=== PATIENT | male | born 1955 | race Caucasian/White ===

== ENCOUNTER 2017-08-01 09:45 | Inpatient (IN) | payer MEDICAID, SELFPAY ==
[2017-08-01 10:17] VITALS: BMI 34.6
[2017-08-01 10:25] VITALS: BMI 34.6
[2017-08-01 10:30] VITALS: PULSE 120
[2017-08-01] MEDS: Lactated Ringers 1,000 ML 125 ML IV ×2 (10:43→18:44)
[2017-08-01 10:48] VITALS: BP 124/84; PULSE 113; RESP 18; TEMP 37.7; O2SAT 92
[2017-08-01 10:51] LABS: Absolute Lymphocyte Count 1.88 X10^3/ul (0.83-4.51); Basophil# 0.04 X10^3/uL; Basophil% 0.2 % (0-1); Differential Indicated SCAN CRITERIA MET; Hematocrit 37.1 % (40-54); Hemoglobin 12.5 g/dl (13.0-16.5); Lymphocyte # 1.88 X10^3/ul (4.0); Lymphocyte % 8.4 % (19-41); Mean Corp Hgb Conc 33.7 g/gl (32-36); Mean Corpuscular Hgb 28.9 pg (27.0-32.0); Mean Corpuscular Volume 85.7 fL (80-94); Mean Platelet Vol. 10.7 fl (6.2-12.0); Monocyte# 1.52 X10^3/uL; Monocyte% 6.8 % (0-10); Neutrophil # 18.97 X10^3/uL (2.7-7.7); Neutrophil % 84.2 % (47-70); POSITIVE COUNT NO; POSITIVE DIFFERENTIAL YES; POSITIVE MORPHOLOGY NO; Platelet Count 260 K/mm3 (150-450); RBC Distribution Width CV 14.2 % (11.6-14.6); RBC Distribution Width SD 43.6 fl (35.1-43.9); Red Blood Count 4.33 M/mm3 (4.6-6.2); White Blood Count 22.5 K/mm3 (4.4-11.0)
[2017-08-01 11:03] LABS: ALB/GLOB Ratio 0.7 RATIO (0.9-2.4); AST(SGOT) 70 U/L (15-37); Alanine Aminotransfer ALT/SGPT 93 U/L (12-78); Alkaline Phosphatase 121 U/L (45-117); Anion Gap 10 (5-15); BUN 28 mg/dL (7-18); Calcium,Total 8.3 mg/dL (8.5-10.1); Chloride 104 mmol/L (98-107); Creatinine, Serum 1.47 mg/dL (0.70-1.30); EST Glomerular Filtration Rate 51 mL/min (>60); Est Glom Filt Rate - Afr Amer 62 mL/min (>60); Estimated Creatinine Clearance 46.42 ml/min; Globulin 4.4 g/dL (2.2-4.2); Glucose 109 mg/dL (70-110); Potassium 3.9 mmol/L (3.5-5.1); Protein, Total 7.4 g/dL (6.4-8.2); Sodium Level 139 mmol/L (136-145)
[2017-08-01] MEDS: 0.9% NaCl Peripheral Flush Adult/Peds IV ×3 (12:34→23:07)
[2017-08-01] MEDS: Piperacil/Tazobactam 3.375 GM/50 ML ML IV ×2 (12:34→21:48)
[2017-08-01] MEDS: Cyanocobalamin (B12) 1,000 MCG/ML Vial 1000 MCG SC (12:55)
--- NOTE | 2017-08-01 12:59 | PCM.HP.STD ---
Problem List (1) Diverticulitis Status: Acute (2) Pyelonephritis Status: Acute History of Present Illness Date of Admission: 08/01/17 The patient is a 61 year old M who had an incisional hernia repair on 07/16/2017. The patient was doing well and was seen by me in the office last week and his drain was removed. At that time he had no nausea vomiting or abdominal pain. He presented to the emergency room at [facility] this morning due to nausea and vomiting yesterday an left lower quadrant and left flank pain radiating to his back. He reports he started yesterday with no fevers or chills. He is not having any burning on urination is not having any diarrhea. Past Medical History Allergies DENEEN Inhibitors Allergy (Mild, Verified 07/26/17 13:07) Unknown atenolol Allergy (Mild, Verified 07/26/17 13:07) unknown Latex, Natural Rubber Allergy (Mild, Verified 08/01/17 10:11) Unknown skin breaks Home Medications: Ambulatory Orders Medication Instructions Recorded cyanocobalamin (vit B-12) 1,000 1,000 mcg SC QMONTH 07/08/17 mcg/mL injection solution losartan 100 mg tablet 100 mg PO DAILY 07/08/17 omeprazole 40 mg capsule,delayed 40 mg PO PRN PRN 07/08/17 release Red Yeast Rice 600 mg PO DAILY 07/12/17 oxycodone-acetaminophen 5 mg-325 1 tab PO Q4H PRN 14 Days #30 tab 07/21/17 mg tablet Amlodipine [Norvasc] 5 mg PO DAILY 08/01/17 Surgical History: cholecystectomy, colectomy - Laparoscopic colectomy in December 2016 at [facility], - - Ventral hernia repair with mesh on 07/16/2017 Smoking Status: Never smoker - *Family History Maternal Family History: Family History (Last Reviewed 08/01/17 @ 13:00 by Edson Zendejas MD) Mother Breast cancer Brother Colon cancer Father Diabetes Review of Systems Constitutional: Denies: Anorexia, Fever HEENT: Denies: Difficulty Swallowing Cardiovascular: Denies: Chest Pain Respiratory: Denies: Cough, Hemoptysis, Shortness of Breath Gastrointestinal: Reports: Abdominal Pain - Left lower quadrant abdominal pain radiating to the back, Nausea - He had nausea and vomiting yesterday which have resolved. Denies: Diarrhea Genitourinary: Denies: Dysuria, Hematuria Musculoskeletal: Denies: Joint Tenderness Skin: Denies: Dryness, Jaundice Psychiatric: Denies: Anxiety, Depression Hematologic/ Lymphatic: Denies: Anemia VTE Information - Inpt Only VTE Present on Admission: No VTE Mechan Device Prophylaxis: SCD's VTE Pharm Prophylaxis ordered?: No Patient Problems: Active and Suspected Problems (Last Reviewed 07/26/17 @ 13:06 by Hawa Pinon) Diverticulitis (Acute) Pyelonephritis (Acute) - Physical Exam General: Alert, Oriented x3, Cooperative, No apparent distress HEENT: Atraumatic, PERRLA, EOMI Oral: Moist Mucosa Neck: Supple, No JVD Lungs: Normal air movement Cardiovascular: Regular Rhythm, Tachycardic Abdomen: Soft, Non-Distended, Tender - Tender in the left lower quadrant with no guarding or rebound, - - Positive left CVA tenderness. Former incision is clean dry and intact with no erythema. His incisional area is soft and nontender. Extremities: No clubbing, No cyanosis Skin: No rashes Musculoskeletal: No Tenderness to Palpation of Joints or Extremities, No Muscle Wasting Neurological: Cranial nerves II-XII grossly intact Psych/Mental Status: Normal Affect, Appropriate Vital Signs Temp Pulse Resp BP Pulse Ox 99.8 F H 113 H 18 124/84 H 92 08/01/17 10:48 08/01/17 10:48 08/01/17 10:48 08/01/17 10:48 08/01/17 10:48 Oxygen Delivery Method Room Air Weight: 214 lb 8.156 oz Body Mass Index (BMI) 34.6 Intake and Output for Last 24 Hours 07/30/17 07/31/17 08/01/17 23:59 23:59 23:59 Intake Total 199 / 199 Output Total 110 / 110 Balance 89 / 89 Laboratory Tests Past 24 Hrs 08/01/17 08/01/17 10:30 10:30 WBC 22.5 H RBC 4.33 L Hgb 12.5 L Hct 37.1 L MCV 85.7 MCH 28.9 MCHC 33.7 RDW 14.2 RDW Differential 43.6 Plt Count 260 MPV 10.7 Immature Gran % (Auto) 0.400 Neut % (Auto) 84.2 H Lymph % (Auto) 8.4 L [place] % (Auto) 6.8 Eos % (Auto) 0.0 Baso % (Auto) 0.2 Absolute Neuts (auto) 19.0 H Absolute Lymphs (auto) 1.88 Total Counted Not Reportable Differential Comment Sodium 139 Potassium 3.9 Chloride 104 Carbon Dioxide 25.0 Anion Gap 10 BUN 28 H Creatinine 1.47 H Estim Creat Clear Calc 46.42 Est GFR (MDRD) Af Amer 62 Est GFR (MDRD) Non-Af 51 L BUN/Creatinine Ratio 19.0 Glucose 109 Calcium 8.3 L Total Bilirubin 1.50 H AST 70 H ALT 93 H Alkaline Phosphatase 121 H Total Protein 7.4 Albumin 3.0 L Globulin 4.4 H Albumin/Globulin Ratio 0.7 L Assessment/Plan Active and Suspected Problems (Last Reviewed 07/26/17 @ 13:06 by Hawa Pinon) Diverticulitis (Acute) Pyelonephritis (Acute) 61-year-old male with acute diverticulitis 1. The patient has leukocytosis and left lower quadrant pain. I reviewed his CAT scan done at the outside hospital. This shows thickening in the area of the colon at his anastomosis. There is still some diverticula in this area. This is likely diverticulitis. However there is stranding in his left perinephric region which was not present on his last CAT scan. He is also complaining of pain radiating to his back. I believe he also has pyelonephritis possibly from translocation of bacteria to his ureter from his colon. 2. I discussed his case with a urologist at [facility] who he will be seeing as an outpatient. He recommended percutaneous nephrostomy tube and to discharge him with this tube in place and he will see him as an outpatient. I will order this percutaneous nephrostomy tube and treat his diverticulitis with n.p.o. and IV fluids and antibiotics. 3. Antibiotics, n.p.o., IV fluids, SCDs. Temporarily hold Lovenox due to percutaneous nephrostomy tube tomorrow. Edson Zendejas MD Pager: [facility] [address] [place] [address] Office:
--- NOTE | 2017-08-01 13:04 | HP.PCM_ITS ---
Problem List (1) Diverticulitis Status: Acute (2) Pyelonephritis Status: Acute History of Present Illness Date of Admission: 08/01/17 The patient is a 61 year old M who had an incisional hernia repair on 2016. The patient was doing well and was seen by me in the office last week and his drain was removed. At that time he had no nausea vomiting or abdominal pain. He presented to the emergency room at [facility] this morning due to nausea and vomiting yesterday an left lower quadrant and left flank pain radiating to his back. He reports he started yesterday with no fevers or chills. He is not having any burning on urination is not having any diarrhea. Past Medical History Allergies DENEEN Inhibitors Allergy (Mild, Verified 07/26/17 13:07) Unknown atenolol Allergy (Mild, Verified 07/26/17 13:07) unknown Latex, Natural Rubber Allergy (Mild, Verified 08/01/17 10:11) Unknown skin breaks Home Medications: Ambulatory Orders Medication Instructions Recorded cyanocobalamin (vit B-12) 1,000 1,000 mcg SC QMONTH 07/08/17 mcg/mL injection solution losartan 100 mg tablet 100 mg PO DAILY 07/08/17 omeprazole 40 mg capsule,delayed 40 mg PO PRN PRN 07/08/17 release Red Yeast Rice 600 mg PO DAILY 07/12/17 oxycodone-acetaminophen 5 mg-325 1 tab PO Q4H PRN 14 Days #30 tab 07/21/17 mg tablet Amlodipine [Norvasc] 5 mg PO DAILY 08/01/17 Surgical History: cholecystectomy, colectomy - Laparoscopic colectomy in December 2016 at [facility], - - Ventral hernia repair with mesh on 07/16/2017 Smoking Status: Never smoker - *Family History Maternal Family History: Family History (Last Reviewed 08/01/17 @ 13:00 by Edson Zendejas MD) Mother Breast cancer Brother Colon cancer Father Diabetes Review of Systems Constitutional: Denies: Anorexia, Fever HEENT: Denies: Difficulty Swallowing Cardiovascular: Denies: Chest Pain Respiratory: Denies: Cough, Hemoptysis, Shortness of Breath Gastrointestinal: Reports: Abdominal Pain - Left lower quadrant abdominal pain radiating to the back, Nausea - He had nausea and vomiting yesterday which have resolved. Denies: Diarrhea Genitourinary: Denies: Dysuria, Hematuria Musculoskeletal: Denies: Joint Tenderness Skin: Denies: Dryness, Jaundice Psychiatric: Denies: Anxiety, Depression Hematologic/ Lymphatic: Denies: Anemia VTE Information - Inpt Only VTE Present on Admission: No VTE Mechan Device Prophylaxis: SCD's VTE Pharm Prophylaxis ordered?: No Patient Problems: Active and Suspected Problems (Last Reviewed 07/26/17 @ 13:06 by Hawa Pinon) Diverticulitis (Acute) Pyelonephritis (Acute) - Physical Exam General: Alert, Oriented x3, Cooperative, No apparent distress HEENT: Atraumatic, PERRLA, EOMI Oral: Moist Mucosa Neck: Supple, No JVD Lungs: Normal air movement Cardiovascular: Regular Rhythm, Tachycardic Abdomen: Soft, Non-Distended, Tender - Tender in the left lower quadrant with no guarding or rebound, - - Positive left CVA tenderness. Former incision is clean dry and intact with no erythema. His incisional area is soft and nontender. Extremities: No clubbing, No cyanosis Skin: No rashes Musculoskeletal: No Tenderness to Palpation of Joints or Extremities, No Muscle Wasting Neurological: Cranial nerves II-XII grossly intact Psych/Mental Status: Normal Affect, Appropriate Vital Signs Temp Pulse Resp BP Pulse Ox 99.8 F H 113 H 18 124/84 H 92 08/01/17 10:48 08/01/17 10:48 08/01/17 10:48 08/01/17 10:48 08/01/17 10:48 Oxygen Delivery Method Room Air Weight: 214 lb 8.156 oz Body Mass Index (BMI) 34.6 Intake and Output for Last 24 Hours 07/30/17 07/31/17 08/01/17 23:59 23:59 23:59 Intake Total 199 / 199 Output Total 110 / 110 Balance 89 / 89 Laboratory Tests Past 24 Hrs 08/01/17 08/01/17 10:30 10:30 WBC 22.5 H RBC 4.33 L Hgb 12.5 L Hct 37.1 L MCV 85.7 MCH 28.9 MCHC 33.7 RDW 14.2 RDW Differential 43.6 Plt Count 260 MPV 10.7 Immature Gran % (Auto) 0.400 Neut % (Auto) 84.2 H Lymph % (Auto) 8.4 L [place] % (Auto) 6.8 Eos % (Auto) 0.0 Baso % (Auto) 0.2 Absolute Neuts (auto) 19.0 H Absolute Lymphs (auto) 1.88 Total Counted Not Reportable Differential Comment Sodium 139 Potassium 3.9 Chloride 104 Carbon Dioxide 25.0 Anion Gap 10 BUN 28 H Creatinine 1.47 H Estim Creat Clear Calc 46.42 Est GFR (MDRD) Af Amer 62 Est GFR (MDRD) Non-Af 51 L BUN/Creatinine Ratio 19.0 Glucose 109 Calcium 8.3 L Total Bilirubin 1.50 H AST 70 H ALT 93 H Alkaline Phosphatase 121 H Total Protein 7.4 Albumin 3.0 L Globulin 4.4 H Albumin/Globulin Ratio 0.7 L Assessment/Plan Active and Suspected Problems (Last Reviewed 07/26/17 @ 13:06 by Hawa Pinon) Diverticulitis (Acute) Pyelonephritis (Acute) 61-year-old male with acute diverticulitis 1. The patient has leukocytosis and left lower quadrant pain. I reviewed his CAT scan done at the outside hospital. This shows thickening in the area of the colon at his anastomosis. There is still some diverticula in this area. This is likely diverticulitis. However there is stranding in his left perinephric region which was not present on his last CAT scan. He is also complaining of pain radiating to his back. I believe he also has pyelonephritis possibly from translocation of bacteria to his ureter from his colon. 2. I discussed his case with a urologist at [facility] who he will be seeing as an outpatient. He recommended percutaneous nephrostomy tube and to discharge him with this tube in place and he will see him as an outpatient. I will order this percutaneous nephrostomy tube and treat his diverticulitis with n.p.o. and IV fluids and antibiotics. 3. Antibiotics, n.p.o., IV fluids, SCDs. Temporarily hold Lovenox due to percutaneous nephrostomy tube tomorrow. Edson Zendejas MD Pager: [facility] [address] [place] [address] Office:
[2017-08-01 15:22] VITALS: BP 136/86; PULSE 104; RESP 18; TEMP 37; O2SAT 95
[2017-08-01 20:25] VITALS: BP 136/80; PULSE 102; RESP 20; TEMP 37.5; O2SAT 95
[2017-08-02] VITALS (9 sets, daily range): BP systolic 144–175; BP diastolic 79–99; PULSE 96–109; RESP 16–20; TEMP 37.1–38.4; O2SAT 93–96
[2017-08-02] MEDS: Lactated Ringers 1,000 ML 125 ML IV ×3 (03:00→19:51)
[2017-08-02] MEDS: Piperacil/Tazobactam 3.375 GM/50 ML ML IV ×3 (06:25→22:37)
[2017-08-02] MEDS: 0.9% NaCl Peripheral Flush Adult/Peds IV (06:25)
[2017-08-02 06:26] LABS: Absolute Lymphocyte Count 0.97 X10^3/ul (0.83-4.51); Basophil# 0.04 X10^3/uL; Basophil% 0.3 % (0-1); Eosinophil# 0.08 X10^3/uL; Eosinophils% 0.6 % (0-5); Hematocrit 34.6 % (40-54); Hemoglobin 11.3 g/dl (13.0-16.5); Lymphocyte # 0.97 X10^3/ul (4.0); Lymphocyte % 6.9 % (19-41); Mean Corp Hgb Conc 32.7 g/gl (32-36); Mean Corpuscular Hgb 28.3 pg (27.0-32.0); Mean Corpuscular Volume 86.7 fL (80-94); Mean Platelet Vol. 10.7 fl (6.2-12.0); Monocyte# 1.01 X10^3/uL; Monocyte% 7.2 % (0-10); Neutrophil # 11.95 X10^3/uL (2.7-7.7); Neutrophil % 84.8 % (47-70); Platelet Count 197 K/mm3 (150-450); RBC Distribution Width CV 14.1 % (11.6-14.6); RBC Distribution Width SD 45.1 fl (35.1-43.9); Red Blood Count 3.99 M/mm3 (4.6-6.2); White Blood Count 14.1 K/mm3 (4.4-11.0)
[2017-08-02 06:27] LABS: International Normalized Ratio 1.3; Prothrombin Time (Protime)PT. 15.8 SECONDS (11.7-14.9)
[2017-08-02 06:28] LABS: POSITIVE COUNT NO; POSITIVE DIFFERENTIAL NO; POSITIVE MORPHOLOGY NO
[2017-08-02 06:41] LABS: ALB/GLOB Ratio 0.6 RATIO (0.9-2.4); AST(SGOT) 30 U/L (15-37); Alanine Aminotransfer ALT/SGPT 61 U/L (12-78); Albumin, Serum 2.4 g/dL (3.4-5.0); Alkaline Phosphatase 118 U/L (45-117); Anion Gap 9 (5-15); BUN 20 mg/dL (7-18); BUN/Creat Ratio 16.1 RATIO (10-20); Calcium,Total 8.2 mg/dL (8.5-10.1); Chloride 105 mmol/L (98-107); Creatinine, Serum 1.24 mg/dL (0.70-1.30); EST Glomerular Filtration Rate 62 mL/min (>60); Est Glom Filt Rate - Afr Amer 76 mL/min (>60); Estimated Creatinine Clearance 55.02 ml/min; Globulin 4.3 g/dL (2.2-4.2); Glucose 101 mg/dL (70-110); Potassium 3.7 mmol/L (3.5-5.1); Protein, Total 6.7 g/dL (6.4-8.2); Sodium Level 137 mmol/L (136-145)
--- NOTE | 2017-08-02 10:00 | CT_ITS ---
PROCEDURE: LEFT PERCUTANEOUS NEPHROSTOMY TUBE PLACEMENT. CT guidance. DATE OF EXAMINATION: August 02, 2017. INDICATION: Male, 61 years old. Left ureteral obstruction. PHYSICIAN: Jonathan Renee M.D. CONSENT: Obtained. SEDATION: Local anesthesia MEDICATION: Versed 2 mg IV, 50 mcg fentanyl intravenously. The conscious sedation protocol was followed and independently monitored by the radiology nurse. Conscious sedation was started at 10:15 AM and terminated at 10:42 AM. ACCESS SITE: Left posterior flank, lower pole calyx - posterior approach. CATHETER: 8.5 Georgian Flexima nephrostomy catheter. EBL: None. COMPLICATIONS: None Immediate. Individualized dose optimization techniques were utilized. TECHNIQUE: The risks, benefits and alternatives to the procedure were discussed with the patient, and a written informed consent was obtained and placed in the patient's chart. A timeout was performed to confirm the patient's identity, the type of procedure, to be performed and the site of entry. The patient was placed on the CT table in the prone position. Limited imaging performed of the left kidney again demonstrated moderate degree of hydronephrosis. The patient's left flank was prepped and draped in the usual sterile fashion. 2% lidocaine was administered subcutaneously for local anesthesia. Under CT guidance, a lower pole calyx of the left kidney was accessed using a 22-gauge Chiba needle. The inner stylet was removed, and there was note of spontaneous flow of urine. An 0.018 inch guidewire was then advanced under fluoroscopic observation. The Chiba needle was removed and the inner dilator of the Accustick set was advanced over the guidewire. The dilator was removed and reattached to the Accustick set, and readvanced over the guidewire under fluoroscopic observation. The 0.018 guidewire and inner dilator were removed, and a 0.035 inch guidewire was advanced, under fluoroscopic observation. Using serial dilators the tract was dilated. An 8.5 Georgian Flexima nephrostomy catheter was then advanced over the guidewire. The guidewire was removed. The [place] loop of the nephrostomy catheter was formed within the renal pelvis. Small amount of contrast was injected to confirm catheter position. A 2-0 silk, purse-string suture was utilized to secure the catheter to the skin. A Stay-fix sterile dressing was applied. The catheter was attached to a drainage bag, and placed to gravity drainage. The patient tolerated the procedure well without any immediate complications. The patient was transported back to the ambulatory surgical unit in stable condition for recovery prior to discharge. CT/Guided Neph Tube Ins IMPRESSION: Successful CT left nephrostomy tube placement, as described above. Electronically Signed: Jonathan Renee MD at 11:20 EST Tel [phone], Service support ,
[2017-08-02 10:24] LABS: Lactic Acid 0.9 mmol/L (0.4-2.0)
[2017-08-02] MEDS: Acetaminophen 325 MG Tablet 650 MG PO (11:22)
[2017-08-02] MEDS: Losartan Potassium 100 MG Tablet PO (11:23)
[2017-08-02] MEDS: amLODIPine 5 MG Tablet PO (13:54)
--- NOTE | 2017-08-02 15:14 | CASEMGMT ---
RN KIRA Face to Face with patient for initial transition planning/care coordination assessment. RN CM introduced self and role at [facility]. Patient lying in bed, alert and oriented. Patient willing to participate in assessment and is able to answer all questions appropriately. Care providers, pharmacy, and demographics verified. See link attached. Patient wishes to discharge home with home health for wound care and nephrostomy tube care. Patient states that he has no preference for HHC. Referral made to [facility] in [place] with denial due to insurance. Referral made to [facility] which takes [place] insurance and is checking on nurse availability. RN CM will follow-up and continue to set up HHC. RN CM discussed with patient that he would need teachable family member or friend to assist with dressing changes. Patient states he has no further needs or concerns at this time. CM to follow for discharge planning needs that may arise. Disposition Plan: Patient to discharge home with HHC, family support, and follow-up plans in place.
[2017-08-03] VITALS (8 sets, daily range): BP systolic 148–173; BP diastolic 92–99; PULSE 83–101; RESP 18–20; TEMP 36.8–37.7; O2SAT 93–98
[2017-08-03] MEDS: 0.9% NaCl Peripheral Flush Adult/Peds IV ×2 (00:24→20:57)
[2017-08-03] MEDS: Lactated Ringers 1,000 ML 125 ML IV (04:50)
[2017-08-03] MEDS: Piperacil/Tazobactam 3.375 GM/50 ML ML IV ×3 (06:00→20:57)
[2017-08-03 06:20] LABS: Absolute Lymphocyte Count 1.25 X10^3/ul (0.83-4.51); Absolute Neutrophil Count 7.9 X10^3/uL (2.0-7.7); Basophil# 0.02 X10^3/uL; Basophil% 0.2 % (0-1); Eosinophil# 0.27 X10^3/uL; Eosinophils% 2.6 % (0-5); Hematocrit 32.1 % (40-54); Hemoglobin 11.2 g/dl (13.0-16.5); Lymphocyte # 1.25 X10^3/ul (4.0); Lymphocyte % 12.2 % (19-41); Mean Corp Hgb Conc 34.9 g/gl (32-36); Mean Corpuscular Hgb 29.7 pg (27.0-32.0); Mean Corpuscular Volume 85.1 fL (80-94); Mean Platelet Vol. 10.7 fl (6.2-12.0); Monocyte# 0.79 X10^3/uL; Monocyte% 7.7 % (0-10); Neutrophil # 7.89 X10^3/uL (2.7-7.7); Neutrophil % 77.2 % (47-70); Platelet Count 181 K/mm3 (150-450); RBC Distribution Width CV 13.5 % (11.6-14.6); RBC Distribution Width SD 42.2 fl (35.1-43.9); Red Blood Count 3.77 M/mm3 (4.6-6.2); White Blood Count 10.2 K/mm3 (4.4-11.0)
[2017-08-03 06:36] LABS: POSITIVE COUNT NO; POSITIVE DIFFERENTIAL NO; POSITIVE MORPHOLOGY NO
[2017-08-03 06:43] LABS: ALB/GLOB Ratio 0.5 RATIO (0.9-2.4); AST(SGOT) 20 U/L (15-37); Alanine Aminotransfer ALT/SGPT 43 U/L (12-78); Albumin, Serum 2.3 g/dL (3.4-5.0); Alkaline Phosphatase 142 U/L (45-117); Anion Gap 9 (5-15); BUN 14 mg/dL (7-18); BUN/Creat Ratio 12.7 RATIO (10-20); Calcium,Total 8.4 mg/dL (8.5-10.1); Chloride 101 mmol/L (98-107); EST Glomerular Filtration Rate 72 mL/min (>60); Est Glom Filt Rate - Afr Amer 87 mL/min (>60); Estimated Creatinine Clearance 62.03 ml/min; Globulin 4.6 g/dL (2.2-4.2); Glucose 89 mg/dL (70-110); Potassium 3.4 mmol/L (3.5-5.1); Protein, Total 6.9 g/dL (6.4-8.2); Sodium Level 134 mmol/L (136-145)
[2017-08-03] MEDS: amLODIPine 5 MG Tablet PO (07:31)
[2017-08-03] MEDS: Losartan Potassium 100 MG Tablet PO (07:31)
--- NOTE | 2017-08-03 09:42 | PCM.PN.SRG ---
Patient Problems: Active and Suspected Problems (Last Reviewed 07/26/17 @ 13:06 by Hawa Pinon) Diverticulitis (Acute) Pyelonephritis (Acute) Subjective: The patient reports that he is doing well. He is not having any nausea or vomiting but he is still having some left lower quadrant pain. He is passing flatus. He is not having any appetite. - Physical Exam General: Alert, Oriented x3, Cooperative, No apparent distress HEENT: Atraumatic Lungs: Normal air movement Cardiovascular: Regular rate, Regular Rhythm Abdomen: Soft, Non-Distended, Tender - Tender in the left lower quadrant with no guarding or rebound. Incision is clean dry and intact and healing well., - - Patient has left percutaneous nephrostomy tube which is serosanguineous. The purulence is disappear from yesterday. Musculoskeletal: No Muscle Wasting Neurological: Cranial nerves II-XII grossly intact Vital Signs Temp Pulse Resp BP Pulse Ox 99.0 F 95 20 H 173/99 H 95 08/03/17 07:28 08/03/17 07:28 08/03/17 07:28 08/03/17 07:28 08/03/17 07:28 Oxygen Delivery Method Room Air Weight: 214 lb 8.156 oz Body Mass Index (BMI) 34.6 Intake and Output for Last 24 Hours 08/01/17 08/02/17 08/03/17 23:59 23:59 23:59 Intake Total 1199 / 1199 2779.7 / 2779.7 2016 Output Total 340 / 340 1275 / 1275 1875 / 1875 Balance 859 / 859 1504.7 / 1504.7 142 / 142 Laboratory Tests Past 24 Hrs 08/02/17 08/03/17 08/03/17 09:47 06:08 06:08 WBC 10.2 RBC 3.77 L Hgb 11.2 L Hct 32.1 L MCV 85.1 MCH 29.7 MCHC 34.9 RDW 13.5 RDW Differential 42.2 Plt Count 181 MPV 10.7 Immature Gran % (Auto) 0.100 Neut % (Auto) 77.2 H Lymph % (Auto) 12.2 L [place] % (Auto) 7.7 Eos % (Auto) 2.6 Baso % (Auto) 0.2 Absolute Neuts (auto) 7.9 H Absolute Lymphs (auto) 1.25 Total Counted Not Reportable Sodium 134 L Potassium 3.4 L Chloride 101 Carbon Dioxide 24.0 Anion Gap 9 BUN 14 Creatinine 1.10 Estim Creat Clear Calc 62.03 Est GFR (MDRD) Af Amer 87 Est GFR (MDRD) Non-Af 72 BUN/Creatinine Ratio 12.7 Glucose 89 Lactic Acid 0.9 Calcium 8.4 L Total Bilirubin 1.80 H AST 20 ALT 43 Alkaline Phosphatase 142 H Total Protein 6.9 Albumin 2.3 L Globulin 4.6 H Albumin/Globulin Ratio 0.5 L Assessment/Plan Active and Suspected Problems (Last Reviewed 07/26/17 @ 13:06 by Hawa Pinon) Diverticulitis (Acute) Pyelonephritis (Acute) 61-year-old male with acute diverticulitis and left pyelonephritis 1. Diverticulitis--the patient is not having appetite today he is passing flatus and his white count has returned to normal with IV antibiotics. He is still having left lower quadrant pain but he said it is improved. I will keep him n.p.o. again today with IV fluids and decrease the IV fluids due to his high urine output. 2. Pyelonephritis--the patient has a left percutaneous nephrostomy tube. There was purulent material removed from yesterday and sent for culture. Today the output has turned more clear with a blood tinge and his creatinine has decreased. 3. Continue n.p.o./IV antibiotics, SCDs, Lovenox, Pepcid. Edson Zendejas MD Pager: [facility] [address], [facility] [address] [place] [address] Office:
[2017-08-03] MEDS: Enoxaparin 40 MG/0.4 ML Syringe SC (10:22)
[2017-08-03] MEDS: HYDROcodone Bitartrate/Apap 5/325 Tablet PO (13:21)
--- NOTE | 2017-08-03 15:28 | CASEMGMT ---
Received call back from [facility] regarding HHC referral, they are unable to take patient due to staffing. RN CM called [facility] for referral, they do not accept [place] insurance. RN CM called [facility] who take [place] insurance but do not service [facility]. RN CM called [facility] again to see if they would reconsider patient due to not being able to find service in the area that will accept patient. [facility] would talk to nurse and corporate and would get back with this RN CM. RN CM will continue to assist with HHC setup.
[2017-08-03] MEDS: Lactated Ringers 1,000 ML 75 ML IV (15:55)
[2017-08-03] MEDS: Ondansetron 4 MG/2 ML Vial IV (20:57)
[2017-08-04] MEDS: Piperacil/Tazobactam 3.375 GM/50 ML ML IV ×3 (05:44→21:38)
[2017-08-04] MEDS: Lactated Ringers 1,000 ML 75 ML IV ×2 (05:44→18:09)
[2017-08-04] MEDS: Enoxaparin 40 MG/0.4 ML Syringe SC (05:44)
[2017-08-04 05:46] VITALS: BP 164/91; PULSE 86; RESP 17; TEMP 36.6; O2SAT 98
[2017-08-04 07:02] LABS: Absolute Lymphocyte Count 1.53 X10^3/ul (0.83-4.51); Absolute Neutrophil Count 5.2 X10^3/uL (2.0-7.7); Basophil# 0.02 X10^3/uL; Basophil% 0.2 % (0-1); Eosinophil# 0.43 X10^3/uL; Eosinophils% 5.3 % (0-5); Hematocrit 34.4 % (40-54); Hemoglobin 11.4 g/dl (13.0-16.5); Lymphocyte # 1.53 X10^3/ul (4.0); Lymphocyte % 18.9 % (19-41); Mean Corp Hgb Conc 33.1 g/gl (32-36); Mean Corpuscular Hgb 27.9 pg (27.0-32.0); Mean Corpuscular Volume 84.3 fL (80-94); Monocyte# 0.89 X10^3/uL; Neutrophil % 64.5 % (47-70); Platelet Count 232 K/mm3 (150-450); RBC Distribution Width CV 13.4 % (11.6-14.6); RBC Distribution Width SD 40.8 fl (35.1-43.9); Red Blood Count 4.08 M/mm3 (4.6-6.2); White Blood Count 8.1 K/mm3 (4.4-11.0)
[2017-08-04 07:08] LABS: Anion Gap 11 (5-15); BUN 13 mg/dL (7-18); BUN/Creat Ratio 12.9 RATIO (10-20); Calcium,Total 8.6 mg/dL (8.5-10.1); Chloride 102 mmol/L (98-107); Creatinine, Serum 1.01 mg/dL (0.70-1.30); EST Glomerular Filtration Rate 79 mL/min (>60); Est Glom Filt Rate - Afr Amer 96 mL/min (>60); Estimated Creatinine Clearance 67.56 ml/min; Glucose 80 mg/dL (70-110); Potassium 3.4 mmol/L (3.5-5.1); Sodium Level 137 mmol/L (136-145)
[2017-08-04 07:15] LABS: POSITIVE COUNT NO; POSITIVE DIFFERENTIAL NO; POSITIVE MORPHOLOGY NO
--- NOTE | 2017-08-04 08:34 | PCM.PN.SRG ---
Patient Problems: Active and Suspected Problems (Last Reviewed 07/26/17 @ 13:06 by Hawa Pinon) Diverticulitis (Acute) Pyelonephritis (Acute) Subjective: Patient is doing well this morning. He says his pain is greatly improved in the left lower quadrant. He is not having any nausea or vomiting today but he did have one episode of vomiting yesterday. He is not having any fevers or chills. - Physical Exam General: Alert, Oriented x3, Cooperative HEENT: Atraumatic Neck: No JVD Lungs: Normal air movement Cardiovascular: Regular rate, Regular Rhythm Abdomen: Soft, Non-Distended, Tender - Mild left lower quadrant tenderness which is much improved from yesterday., - - His percutaneous nephrostomy tube as urine with blood tinge Neurological: Cranial nerves II-XII grossly intact Vital Signs Temp Pulse Resp BP Pulse Ox 97.8 F 86 17 164/91 H 98 08/04/17 05:46 08/04/17 05:46 08/04/17 05:46 08/04/17 05:46 08/04/17 05:46 Oxygen Delivery Method Room Air Weight: 214 lb 8.156 oz Body Mass Index (BMI) 34.6 Intake and Output for Last 24 Hours 08/02/17 08/03/17 08/04/17 23:59 23:59 23:59 Intake Total 2779.7 / 2779.7 4366 / 4366 520 / 520 Output Total 1275 / 1275 4235 / 4235 300 / 300 Balance 1504.7 / 1504.7 131 / 131 220 / 220 Microbiology Past 72 Hours 08/02/17 10:15 Urine Culture - Final Urine, Nephrostomy Pseudomonas aeroginosa Laboratory Tests Past 24 Hrs 08/04/17 08/04/17 06:20 06:20 WBC 8.1 RBC 4.08 L Hgb 11.4 L Hct 34.4 L MCV 84.3 MCH 27.9 MCHC 33.1 RDW 13.4 RDW Differential 40.8 Plt Count 232 MPV 11.0 Immature Gran % (Auto) 0.100 Neut % (Auto) 64.5 Lymph % (Auto) 18.9 L [place] % (Auto) 11.0 H Eos % (Auto) 5.3 H Baso % (Auto) 0.2 Absolute Neuts (auto) 5.2 Absolute Lymphs (auto) 1.53 Total Counted Not Reportable Sodium 137 Potassium 3.4 L Chloride 102 Carbon Dioxide 24.0 Anion Gap 11 BUN 13 Creatinine 1.01 Estim Creat Clear Calc 67.56 Est GFR (MDRD) Af Amer 96 Est GFR (MDRD) Non-Af 79 BUN/Creatinine Ratio 12.9 Glucose 80 Calcium 8.6 Assessment/Plan Active and Suspected Problems (Last Reviewed 07/26/17 @ 13:06 by Hawa Pinon) Diverticulitis (Acute) Pyelonephritis (Acute) 61-year-old male with acute diverticulitis and left pyelonephritis 1. Diverticulitis--the patient's white count has returned to normal and his left lower quadrant pain is much improved. I will start some clear liquid diet.. 2. Pyelonephritis--the patient has a left percutaneous nephrostomy tube. Continue drainage and antibiotics. It has grown Pseudomonas which is sensitive to the Zosyn. 3. Continue IV antibiotics, SCDs, Lovenox, Pepcid. Edson Zendejas MD Pager: [facility] [address] [place] [address] Office:
--- NOTE | 2017-08-04 09:11 | NURSING ---
Page placed to Dr. Zendejas, return call from staff in surgery to take message d/t md in surgery. Reported that K was 3.4. Staff said they will let Dr. Zendejas know and return call to this nurse if MD has any new orders
[2017-08-04 09:38] VITALS: BP 142/80; PULSE 85; RESP 18; TEMP 36.8; O2SAT 98
[2017-08-04] MEDS: amLODIPine 5 MG Tablet PO (09:39)
[2017-08-04] MEDS: Losartan Potassium 100 MG Tablet PO (09:39)
--- NOTE | 2017-08-04 09:56 | CASEMGMT ---
MARYAN MALONE continuation of transition planning. MARYAN MALONE was given report that patient needs home health for dressing changes. MARYAN MALONE called [facility], they are unable to accept, RN KIRA called [facility], they are no longer in-network with [facility]. RN KIRA called [facility], await call back. The rest of the [facility] agencies in-network with [facility] are out of the service area for the patient's address. MARYAN MALONE spoke with patient to confirm living situation and help at home and to inform him no home health agency in his service area is willing to accept, either due to capacity ie...no SN available, or network status with insurance. Per patient's bedside RN, patient's only dressing change is for the gauze around his neph tube. The patient is independent with self-care and denies DME use. The patient does not drive. MARYAN MALONE confirmed patient does live with friend/family, but patient refuses to allow this person to assist. MARYAN MALONE informed patient there has to be a teachable individual to learn the dressing change because [facility] does not come to the home daily. Patient states just get out and I will take care of it when I get home. MARYAN MALONE asks what he will do at home, patient states I will come back to the hospital if it gets infected. MARYAN MALONE explained the intention is to make sure the patient can manage his care at home and plan for a safe transition, and that the bedside RN can teach patient and friend/family how to change the dressing. Patient states I just told you, I'll take care of it. And how am I going to put guaze on my back. MARYAN MALONE again reiterated he would need to work with friend/family to get this completed. MARYAN MALONE also gave patient option of wound care center in [place] or [place]. Patient refused, waving his hand, stating no, no, that's too far, I'll just take care of it. Then MARYAN MALONE told patient he could also call his PCP, again declined. Disposition Plan: Home no [facility] due to inability to staff case and insurance issues.
[2017-08-04 15:15] VITALS: BP 152/80; PULSE 89; RESP 18; TEMP 37.3; O2SAT 98
[2017-08-04 21:45] VITALS: BP 169/98; PULSE 88; RESP 16; TEMP 36.7; O2SAT 96
[2017-08-04] MEDS: HYDROcodone Bitartrate/Apap 5/325 Tablet PO (23:28)
[2017-08-05 03:48] VITALS: BP 152/88; PULSE 78; RESP 19; TEMP 36.7; O2SAT 98
[2017-08-05] MEDS: Piperacil/Tazobactam 3.375 GM/50 ML ML IV (06:45)
[2017-08-05] MEDS: Enoxaparin 40 MG/0.4 ML Syringe SC (06:45)
[2017-08-05] MEDS: Lactated Ringers 1,000 ML 75 ML IV (06:45)
[2017-08-05 06:57] LABS: Absolute Lymphocyte Count 1.74 X10^3/ul (0.83-4.51); Absolute Neutrophil Count 3.2 X10^3/uL (2.0-7.7); Basophil# 0.03 X10^3/uL; Basophil% 0.5 % (0-1); Eosinophil# 0.48 X10^3/uL; Eosinophils% 7.6 % (0-5); Hematocrit 33.7 % (40-54); Hemoglobin 11.5 g/dl (13.0-16.5); Lymphocyte # 1.74 X10^3/ul (4.0); Lymphocyte % 27.7 % (19-41); Mean Corp Hgb Conc 34.1 g/gl (32-36); Mean Corpuscular Hgb 28.6 pg (27.0-32.0); Mean Corpuscular Volume 83.8 fL (80-94); Mean Platelet Vol. 10.1 fl (6.2-12.0); Monocyte# 0.85 X10^3/uL; Monocyte% 13.5 % (0-10); Neutrophil # 3.16 X10^3/uL (2.7-7.7); Neutrophil % 50.4 % (47-70); Platelet Count 219 K/mm3 (150-450); RBC Distribution Width CV 13.2 % (11.6-14.6); RBC Distribution Width SD 40.6 fl (35.1-43.9); Red Blood Count 4.02 M/mm3 (4.6-6.2); White Blood Count 6.3 K/mm3 (4.4-11.0)
[2017-08-05 07:01] LABS: POSITIVE COUNT NO; POSITIVE DIFFERENTIAL NO; POSITIVE MORPHOLOGY NO
[2017-08-05 07:05] LABS: Anion Gap 9 (5-15); BUN 11 mg/dL (7-18); BUN/Creat Ratio 9.9 RATIO (10-20); Calcium,Total 8.5 mg/dL (8.5-10.1); Chloride 104 mmol/L (98-107); Creatinine, Serum 1.11 mg/dL (0.70-1.30); EST Glomerular Filtration Rate 71 mL/min (>60); Est Glom Filt Rate - Afr Amer 86 mL/min (>60); Estimated Creatinine Clearance 61.47 ml/min; Glucose 83 mg/dL (70-110); Potassium 3.5 mmol/L (3.5-5.1); Sodium Level 138 mmol/L (136-145)
[2017-08-05] MEDS: Ondansetron 4 MG/2 ML Vial IV (07:31)
[2017-08-05] MEDS: 0.9% NaCl Peripheral Flush Adult/Peds IV (07:31)
[2017-08-05 07:37] VITALS: PULSE 70
--- NOTE | 2017-08-05 07:44 | PCM.DC ---
- Discharge Diagnoses Current Active Problems: Current Active and Chronic Problems (Last Reviewed 07/26/17 @ 13:06 by Hawa Pinon) Diverticulitis (Acute) Pyelonephritis (Acute) You will use the following diet at home:: Regular Your food should be the consistency of: Regular Your liquids should be the consistency of: Regular/Thin Discharge Activity: No Restrictions, May Drive, May Shower Call your doctor if your incision/area has: Continuous Slow Oozing, Sudden Increased Bleeding, Increased Pain/ Swelling, Increased Redness, Foul Smelling Discharge, Swelling at the incision site Call your doctor if you observe: Fever of 101 or Higher Drain: [place] Allergies/Adverse Reactions: Allergies DENEEN Inhibitors Allergy (Mild, Verified 07/26/17 13:07) Unknown atenolol Allergy (Mild, Verified 07/26/17 13:07) unknown Latex, Natural Rubber Allergy (Mild, Verified 08/01/17 10:11) Unknown skin breaks Medications to take at Discharge cyanocobalamin (vit B-12) 1,000 mcg/mL injection solution 1,000 mcg SC QMONTH 07/08/17 losartan 100 mg tablet 100 mg PO DAILY 07/08/17 omeprazole 40 mg capsule,delayed release 40 mg PO PRN PRN 07/08/17 Red Yeast Rice 600 mg PO DAILY 07/12/17 Amlodipine [Norvasc] 5 mg PO DAILY 08/01/17 Primary Care Physician: Clifford Morales MD [Primary Care Provider] - Please Follow Up With: Edson Zendejas MD When: call to make follow up appt [phone] Please Follow Up With: Dr Ramos When: Follow up with Dr Ramos at [facility] for nephrostomy [phone]
--- NOTE | 2017-08-05 07:47 | DCINST_ITS ---
- Discharge Diagnoses Current Active Problems: Current Active and Chronic Problems (Last Reviewed 07/26/17 @ 13:06 by Hawa Pinon) Diverticulitis (Acute) Pyelonephritis (Acute) You will use the following diet at home:: Regular Your food should be the consistency of: Regular Your liquids should be the consistency of: Regular/Thin Discharge Activity: No Restrictions, May Drive, May Shower Call your doctor if your incision/area has: Continuous Slow Oozing, Sudden Increased Bleeding, Increased Pain/ Swelling, Increased Redness, Foul Smelling Discharge, Swelling at the incision site Call your doctor if you observe: Fever of 101 or Higher Drain: [place] Allergies/Adverse Reactions: Allergies DENEEN Inhibitors Allergy (Mild, Verified 07/26/17 13:07) Unknown atenolol Allergy (Mild, Verified 07/26/17 13:07) unknown Latex, Natural Rubber Allergy (Mild, Verified 08/01/17 10:11) Unknown skin breaks Medications to take at Discharge cyanocobalamin (vit B-12) 1,000 mcg/mL injection solution 1,000 mcg SC QMONTH losartan 100 mg tablet 100 mg PO DAILY 07/08/17 omeprazole 40 mg capsule,delayed release 40 mg PO PRN PRN 07/08/17 Red Yeast Rice 600 mg PO DAILY 07/12/17 Amlodipine [Norvasc] 5 mg PO DAILY 08/01/17 Primary Care Physician: Clifford Morales MD [Primary Care Provider] - Please Follow Up With: Edson Zendejas MD When: call to make follow up appt [phone] Please Follow Up With: Dr Ramos When: Follow up with Dr Ramos at [facility] for nephrostomy [phone]
--- NOTE | 2017-08-05 08:00 | PCM.DC.SUM ---
Discharge Date and Diagnosis Date of Admission: 08/01/17 Date of Discharge: 08/06/17 - Primary Discharge Diagnosis Active and Suspected Problems (Last Reviewed 07/26/17 @ 13:06 by Hawa Pinon) Diverticulitis (Acute) Pyelonephritis (Acute) Hospital Course and Treatment Imaging Results: Clinical Impression(s) from Imaging Studies Nephrostomy Tube Placement 08/02/17 10:00 IMPRESSION: Successful CT left nephrostomy tube placement, as described above. Electronically Signed: Jonathan Renee MD at 11:20 EST Tel [phone], Service support , Operations: None, - Procedures: - - Left nephrostomy tube placement Summary of Care Provided: The patient is a 61 year old M who had an incarcerated ventral hernia repair about 2 weeks ago. He presented to the emergency room at [place] with left lower quadrant pain. A CT revealed diverticulitis as well as pyelonephritis. He was transferred here for treatment. He was started on antibiotics and kept n.p.o. and a percutaneous left nephrostomy tube was placed. The nephrostomy tube grew Pseudomonas sensitive to all antibiotics. After a few days of drainage his pain was much improved and his white count was normal. He was started on a regular diet. If he tolerates regular diet he will be discharged home on oral antibiotics and he will follow-up with Dr. Ramos in [place] for nephrostomy management. Discharge Activity: No Restrictions, May Drive, May Shower Call your doctor if your incision/area has: Continuous Slow Oozing, Sudden Increased Bleeding, Increased Pain/ Swelling, Increased Redness, Foul Smelling Discharge, Swelling at the incision site Call your doctor if you observe: Fever of 101 or Higher Drain: [place] Home Medications: Medications to take at Discharge cyanocobalamin (vit B-12) 1,000 mcg/mL injection solution 1,000 mcg SC QMONTH 07/08/17 losartan 100 mg tablet 100 mg PO DAILY 07/08/17 omeprazole 40 mg capsule,delayed release 40 mg PO PRN PRN 07/08/17 Red Yeast Rice 600 mg PO DAILY 07/12/17 Amlodipine [Norvasc] 5 mg PO DAILY 08/01/17 Ciprofloxacin [Cipro] 500 mg PO BID #20 tab 08/05/17 Hydrocodone Bitart/Apap 5-325 [[place] 5/325] 1 - 2 tablet PO Q6H PRN PRN #32 tablet 08/05/17 Metronidazole [Flagyl] 500 mg PO Q8H #30 tab 08/05/17 Ondansetron HCl [Zofran] 4 mg PO Q6H PRN PRN #20 tab 08/05/17 Following Prescrptions Were Given to Patient: Hydrocodone Bitart/Apap 5-325 [[place] 5/325] 1 - 2 tablet PO Q6H PRN PRN #32 tablet PRN Reason: Severe Pain (-05/03) Ondansetron HCl [Zofran] 4 mg PO Q6H PRN PRN #20 tab PRN Reason: Nausea Metronidazole [Flagyl] 500 mg PO Q8H #30 tab Ciprofloxacin [Cipro] 500 mg PO BID #20 tab Primary Care Physician: Clifford Morales MD [Primary Care Provider] - Please Follow Up With: Edson Zendejas MD When: call to make follow up appt [phone] Please Follow Up With: Dr Ramos When: Follow up with Dr Ramos at [facility] for nephrostomy [phone] Meaningful Use Info Meaningful Use Diagnoses (Choose all that apply): None applicable
--- NOTE | 2017-08-05 08:03 | DS.PCM_ITS ---
Discharge Date and Diagnosis Date of Admission: 08/01/17 Date of Discharge: 08/06/17 - Primary Discharge Diagnosis Active and Suspected Problems (Last Reviewed 07/26/17 @ 13:06 by Hawa Pinon) Diverticulitis (Acute) Pyelonephritis (Acute) Hospital Course and Treatment Imaging Results: Clinical Impression(s) from Imaging Studies Nephrostomy Tube Placement 08/02/17 10:00 IMPRESSION: Successful CT left nephrostomy tube placement, as described above. Electronically Signed: Jonathan Renee MD at 11:20 EST Tel [phone], Service support , Operations: None, - Procedures: - - Left nephrostomy tube placement Summary of Care Provided: The patient is a 61 year old M who had an incarcerated ventral hernia repair about 2 weeks ago. He presented to the emergency room at [place] with left lower quadrant pain. A CT revealed diverticulitis as well as pyelonephritis. He was transferred here for treatment. He was started on antibiotics and kept n.p.o. and a percutaneous left nephrostomy tube was placed. The nephrostomy tube grew Pseudomonas sensitive to all antibiotics. After a few days of drainage his pain was much improved and his white count was normal. He was started on a regular diet. If he tolerates regular diet he will be discharged home on oral antibiotics and he will follow-up with Dr. Ramos in [place] for nephrostomy management. Discharge Activity: No Restrictions, May Drive, May Shower Call your doctor if your incision/area has: Continuous Slow Oozing, Sudden Increased Bleeding, Increased Pain/ Swelling, Increased Redness, Foul Smelling Discharge, Swelling at the incision site Call your doctor if you observe: Fever of 101 or Higher Drain: [place] Home Medications: Medications to take at Discharge cyanocobalamin (vit B-12) 1,000 mcg/mL injection solution 1,000 mcg SC QMONTH losartan 100 mg tablet 100 mg PO DAILY 07/08/17 omeprazole 40 mg capsule,delayed release 40 mg PO PRN PRN 07/08/17 Red Yeast Rice 600 mg PO DAILY 07/12/17 Amlodipine [Norvasc] 5 mg PO DAILY 08/01/17 Ciprofloxacin [Cipro] 500 mg PO BID #20 tab 08/05/17 Hydrocodone Bitart/Apap 5-325 [[place] 5/325] 1 - 2 tablet PO Q6H PRN PRN #32 tablet 08/05/17 Metronidazole [Flagyl] 500 mg PO Q8H #30 tab 08/05/17 Ondansetron HCl [Zofran] 4 mg PO Q6H PRN PRN #20 tab 08/05/17 Following Prescrptions Were Given to Patient: Hydrocodone Bitart/Apap 5-325 [[place] 5/325] 1 - 2 tablet PO Q6H PRN PRN #32 tablet PRN Reason: Severe Pain (-05/03) Ondansetron HCl [Zofran] 4 mg PO Q6H PRN PRN #20 tab PRN Reason: Nausea Metronidazole [Flagyl] 500 mg PO Q8H #30 tab Ciprofloxacin [Cipro] 500 mg PO BID #20 tab Primary Care Physician: Clifford Morales MD [Primary Care Provider] - Please Follow Up With: Edson Zendejas MD When: call to make follow up appt [phone] Please Follow Up With: Dr Ramos When: Follow up with Dr Ramos at [facility] for nephrostomy [phone] Meaningful Use Info Meaningful Use Diagnoses (Choose all that apply): None applicable
[2017-08-05] MEDS: HYDROcodone Bitartrate/Apap 5/325 Tablet PO ×2 (09:00→16:42)
[2017-08-05 09:03] VITALS: BP 163/86; PULSE 88; RESP 18; TEMP 36.5; O2SAT 94
[2017-08-05] MEDS: Losartan Potassium 100 MG Tablet PO (09:05)
[2017-08-05] MEDS: amLODIPine 5 MG Tablet PO (09:05)
[2017-08-05 16:38] VITALS: BP 149/89; PULSE 83; RESP 18; TEMP 36.9; O2SAT 94
[2017-08-05 21:41] VITALS: BP 148/97; PULSE 87; RESP 16; TEMP 36.7; O2SAT 98
[2017-08-06] MEDS: HYDROcodone Bitartrate/Apap 5/325 Tablet PO ×2 (00:47→08:28)
[2017-08-06 01:51] VITALS: BP 156/83; PULSE 77; RESP 16; TEMP 36.6; O2SAT 94
[2017-08-06] MEDS: Enoxaparin 40 MG/0.4 ML Syringe SC (06:10)
[2017-08-06 09:12] VITALS: BP 150/85; PULSE 84; RESP 20; TEMP 36.7; O2SAT 96
--- NOTE | 2017-08-06 13:05 | PCM.PN.SRG ---
Patient Problems: Active and Suspected Problems (Last Reviewed 07/26/17 @ 13:06 by Hawa Pinon) Diverticulitis (Acute) Pyelonephritis (Acute) Subjective: Patient without complaints today Objective: Abdomen is soft. - Physical Exam Vital Signs Temp Pulse Resp BP Pulse Ox 98.1 F 84 20 H 150/85 H 96 08/06/17 09:12 08/06/17 09:12 08/06/17 09:12 08/06/17 09:12 08/06/17 09:12 Oxygen Delivery Method Room Air Weight: 214 lb 8.156 oz Body Mass Index (BMI) 34.6 Intake and Output for Last 24 Hours 08/04/17 08/05/17 08/06/17 23:59 23:59 23:59 Intake Total 3220 / 3220 2578 / 2578 385 / 385 Output Total 1825 / 1825 1465 / 1465 910 / 910 Balance 1395 / 1395 1113 / 1113 -525 / -525 Microbiology Past 72 Hours 08/02/17 10:15 Urine Culture - Final Urine, Nephrostomy Pseudomonas aeroginosa Assessment/Plan Active and Suspected Problems (Last Reviewed 07/26/17 @ 13:06 by Hawa Pinon) Diverticulitis (Acute) Pyelonephritis (Acute) Patient is ready for discharge.
[2017-08-06 14:08] VITALS: BP 150/85; PULSE 86; RESP 18; TEMP 36.8; O2SAT 97
[2017-08-06] MEDS: Ondansetron 8 MG Tablet 4 MG PO (14:12)
[2017-08-06] MEDS: amLODIPine 5 MG Tablet PO (14:13)
[2017-08-06] MEDS: Losartan Potassium 100 MG Tablet PO (14:13)
== END 2017-08-06 15:40 | disposition home or self-care (01) | DRG 305 ==
PROVIDERS: Surgery; Admitting Provider Surgery; Family Provider Family Medicine; PCP Family Medicine; Visit Provider Surgery
DX: N12 Tubulo-interstitial nephritis, not specified as acute or chronic (principal); K57.32 Diverticulitis of large intestine without perforation or abscess without bleeding; Z90.49 Acquired absence of other specified parts of digestive tract
CPT/HCPCS: 36415; 50395; 74485; 80048; 80053; 83605; 85025; 85610; 87077; 87086; 87088; 87184; 87186; 99156; 99157; J7040; J7120; A4216; J2405; J3420

== ENCOUNTER → 2017-08-30 13:07 | Outpatient (CLI) | payer MEDICAID, SELFPAY ==
--- NOTE | 2017-08-30 13:38 | NURSING ---
patient here for a nephrostomy tube dressing change, old dressing removed, cleaned with chlorahexadine, let air dry, applied a stay fee cath secure, secure tube to dressing, small amount of yellow crystalized drainage cleaned away from insertion site and slightly red just at insertion site. Connecting tubing and leg bag changed. Old leg bag emptied for 84 cc yellow urine, this information given to patient. Pt ambulatory, very knowledgeable about the care.
== END ==
PROVIDERS: Family Provider Family Medicine; PCP Family Medicine; Visit Provider Family Medicine
DX: N13.30 Unspecified hydronephrosis (principal)

== ENCOUNTER → 2017-09-08 10:58 | Outpatient (CLI) | payer MEDICAID, SELFPAY | PROVIDERS: Family Provider Family Medicine; PCP Family Medicine; Visit Provider Family Medicine | DX: R69 Illness, unspecified (principal) ==

== ENCOUNTER → 2017-09-14 14:30 | Outpatient (CLI) | payer MEDICAID, SELFPAY ==
--- NOTE | 2017-09-14 14:58 | NURSING ---
PT HERE FOR A DRESSING CHANGE, DRESSING PARTIALLY OFF AT TIME OF REMOVAL, PT SAID HE STARTED TO PEEL IT BACK BECAUSE IT WAS ITCHING- HAIR WAS STARTING TO GROW UNDER THE DRESSING AND CAUSED ITCHING, CLEANSED WITH CHLORAHEXADINE PREP, SLIGHTLY RED JUST AT THE INSERTION SITE, NO WARMTH OR PAIN, HAIR SHAVED OFF GENTLY WHERE THE DRESSING WOULD BE APPLIED, SUREPREP NO STING SKIN PREP PUT ON WHERE THE DRESSING WAS TO BE APPLIED, LET AIR DRY THNE STAYFIX DRESSING APPLIED AND NEPHROSTOMY TUBE SECURE IN DRESSING. PT TOLERATED PROCEDURE WELL.
== END ==
PROVIDERS: Family Provider Family Medicine; PCP Family Medicine
DX: N13.30 Unspecified hydronephrosis (principal)

== ENCOUNTER → 2017-09-19 09:54 | Outpatient (CLI) | payer MEDICAID, SELFPAY ==
--- NOTE | 2017-09-19 10:00 | RAD_ITS ---
STUDY: NEPHROSTOMY TUBE CHANGE LEFT REASON FOR EXAM: Male, 62 years old. Exchange of the left percutaneous nephrostomy. FLUOROSCOPY TIME (if supplied): (0:19) minutes/seconds TECHNIQUE: The patient was in the [id number] decubitus position. The indwelling 8 [place] percutaneous catheter was removed. This was replaced with a 8.5 [place] percutaneous Flexima nephrostomy catheter. The patient tolerated the procedure well. COMPARISON: Comparison is made with prior examination dated August 02, 2017. FINDINGS: Successful exchange of the indwelling 8.5 [place] Flexima nephrostomy catheter. RAD/Nephrostomy Tube Exchange IMPRESSION: Successful exchange of the indwelling 8.5 [place] Flexima nephrostomy catheter. The patient tolerated the procedure well. Electronically Signed: Jonathan Renee MD at 10:49 EST Tel [phone], Service support ,
== END ==
PROVIDERS: Family Provider Family Medicine; PCP Family Medicine
DX: Z43.6 Encounter for attention to other artificial openings of urinary tract (principal); N13.5 Crossing vessel and stricture of ureter without hydronephrosis
CPT/HCPCS: 50435

== ENCOUNTER → 2017-09-28 11:59 | Outpatient (CLI) | payer MEDICAID, SELFPAY ==
--- NOTE | 2017-09-28 12:02 | NM_ITS ---
CLINICAL: 62-year-old male presenting for evaluation of differential renal function prior to anticipated nephrectomy. 99m Tc MAG3 DIURETIC RENAL SCINTIGRAPHY COMPARISON: Previous diuretic renal scintigraphy study dated 08/16/2017 FINDINGS: Following the intravenous administration of 11.9 mCi of 99m Tc MAG3, renal images reveal: 1. The flow study demonstrates normal arterial phase distribution of the radiopharmaceutical to the right kidney. Flow to the left kidney remains significantly decreased and delayed. 2. Immediate static delayed nephrogram images depict prompt, homogeneous tracer concentration by the renal parenchyma of the right kidney with collecting system visualization noted at approximately 2 minutes following tracer injection. Minimal uptake in nonvisualized collecting system activity is defined in the left kidney both prior to and following Lasix administration. Washout of the radiopharmaceutical by the renal parenchyma appears qualitatively normal in the right kidney with unchanged minimal uptake defined the left kidney. There is persistent right kidney collecting system activity identified during 20 minutes of pre-Lasix sequential image acquisition. 3. The [id number] ratio of total renal parenchymal function was calculated to be 94/6 compared to 93/7 reported on the examination dated 08/16/2017. Furosemide 20 mg was administered intravenously. The post Lasix T 1/2 washout of the right kidney collecting system activity was calculated to be < 10 minutes, (normal < 10 minutes). NM/Renal Scan w/o Pharm Interven IMPRESSION: 1. There is preservation of the right kidney renal parenchymal-cortical function. Significant cortical dysfunction is defined in the left kidney. 2. The right kidney collecting system demonstrates a normal physiologic response to induced diuresis negating the presence of functional and/or mechanical obstruction. 3. Overall compared to the previous diuretic renal scintigraphy study dated 08/16/2017, there is no significant interval change. Electronically Signed: Radhames Carrasco DO at 12:07 EST Tel , Service support ,
--- NOTE | 2017-09-28 14:14 | NURSING ---
1315 dressing changed, small amount of redness noted at insertion of catheter, cleansed with chlorahexadine swab, skin prep applied and dressing to secure nephostomy tube, patient tolerated the procedure excellently. discharge instructions and care of catheter reviewed and patient voiced understanding
== END ==
PROVIDERS: Family Provider Family Medicine; PCP Family Medicine
DX: N13.30 Unspecified hydronephrosis (principal); N26.1 Atrophy of kidney (terminal)
CPT/HCPCS: 78707; A9562; J1940

== ENCOUNTER → 2018-09-21 11:01 | Outpatient (CLI) | payer MEDICARE, SELFPAY ==
--- NOTE | 2018-09-21 11:02 | RAD_ITS ---
STUDY: X-RAY - RIGHT KNEE REASON FOR EXAM: Male, 63 years old. Pain. TECHNIQUE: 4 view(s) of the knee. COMPARISON: None. FINDINGS: Normal visualized distal femur. Normal visualized proximal tibia and fibula. Normal proximal tibiofibular articulation. There is no demonstrated fracture. Normal medial femorotibial compartment. Normal lateral femorotibial compartment. Normal patellofemoral articulation. There is no demonstrated joint effusion. The soft tissue structures are unremarkable. RAD/Knee 4 or More Views IMPRESSION: Normal x-ray examination of the knee. Electronically Signed: Tyler Dickerson MD at 15:18 EST , Service support ,
== END ==
LOC: HPRAD 11:02
PROVIDERS: Family Provider Family Medicine; PCP Family Medicine; Referring Provider Orthopaedic Surgery; Visit Provider Orthopaedic Surgery
DX: M25.561 Pain in right knee (principal)
CPT/HCPCS: 73564